=== PATIENT | male | born 1975 | race Caucasian/White ===

== ENCOUNTER 2024-02-05 15:19 | Emergency (ER) | payer OTHER ==
[~2024-02-05] VITALS: Ht 180.3 cm; Wt 106.8 kg
[2024-02-05 15:31] VITALS: TEMP 98
[2024-02-05] MEDS ORDERED: NORCO 325 MG-51 TAB PO (17:39)
[2024-02-05] MEDS ORDERED: CEPHALEXIN500 M1 PO (17:39)
[2024-02-05 17:53] VITALS: BP 138/74; PULSE 94
== END 2024-02-05 17:53 | disposition home or self-care (01) ==
LOC: COL.ER 15:19
DX: L03.311 Cellulitis of abdominal wall (principal); L02.211 Cutaneous abscess of abdominal wall; Z88.2 Allergy status to sulfonamides